=== PATIENT | male | born 1995 | race Caucasian/White ===

== ENCOUNTER 2022-04-06 01:34 | Emergency (ER) | payer SELFPAY ==
[~2022-04-06] VITALS: Ht 182.9 cm; Wt 95.3 kg
--- NOTE | 2022-04-06 01:50 | NUR ---
[id number]. L FOOT PAIN AND SWELLING X 2 WEEKS. AGGREVATED BY PUTTING WEIGHT. PATIENT IS [id number]. ABLE TO MAKE NEEDS KNOWN. VITALS CHECKED.
--- NOTE | 2022-04-06 02:30 | NUR ---
SPENCER JACKMAN AT BEDSIDE
[2022-04-06] MEDS ORDERED: KETO10TA2 PO (05:19)
[2022-04-06] MEDS ORDERED: ACETAMINOPHEN 325 MG TABLET ONE (06:59)
[2022-04-06] MEDS ORDERED: ACETAMINOPHEN 325 MG TABLET PO ONE (07:00)
[2022-04-06] MEDS ORDERED: IBUPROFEN 400 MG TABLET PO ONE (07:00)
[2022-04-06] MEDS ORDERED: IBUPROFEN 400 MG TABLET ONE (07:09)
--- NOTE | 2022-04-06 07:59 | NUR ---
DR ARGUETA W/ PT AT BEDSIDE
[2022-04-06] MEDS ORDERED: CEPH500C2 PO (08:00)
--- NOTE | 2022-04-06 08:19 | NUR ---
Patient discharged to home in stable condition. Written and verbal after care instructions given. Patient verbalizes understanding of instruction. Addendum: 04/06/22 at 0819 by FELISA Pt stated that he's homeless. Homeless waiver provided but not signed by pt; resources refused by pt as well. D/c forms signed and given to pt.
[2022-04-06 08:21] VITALS: BP 120/68
== END 2022-04-06 08:21 | disposition home or self-care (01) ==
LOC: ER 01:37
DX: M79.89 Other specified soft tissue disorders (principal); M79.672 Pain in left foot
CPT/HCPCS: 73630-TC; 93971-TC